=== PATIENT | female | born 1950 | race Caucasian/White ===

== ENCOUNTER 2022-04-05 06:44 | Outpatient (REF) | payer MEDICARE, MEDICAID, SELFPAY ==
--- NOTE | ~2022-04-05 | XR_ITS ---
EXAMINATION: XR ELBOW, RIGHT CLINICAL INFORMATION: Pain in the elbow. COMPARISON: None TECHNIQUE: AP, lateral, and oblique views of the right elbow. FINDINGS: Significant soft tissue increase over the olecranon. Some small bony densities are seen in the region. This could represent bursitis with adjacent dystrophic calcification in the triceps. With these small bony densities underlying bony infection cannot be excluded and therefore correlation needs to be made clinically. There is otherwise degeneration at the articulation of the ulna with the distal humerus and degenerative change along the medial collateral complex and there is also degeneration along the lateral collateral complex. XR/XR elbow RT min 3V IMPRESSION: Soft tissue increase adjacent to the olecranon as described and bony densities in the region. This could be bursitis with adjacent calcific tendinosis of the triceps tendon versus calcific bursitis.. Underlying infection including bony infection cannot be excluded. Correlation recommended clinically. If further evaluation is warranted consider MRI. There is no acute fracture or dislocation.
== END 2022-04-05 06:45 | disposition home or self-care (01) ==
LOC: HO.HOSX 06:44
PROVIDERS: Visit Provider Physician Assistant
DX: M70.21 Olecranon bursitis, right elbow (principal); M24.029 Loose body in unspecified elbow
CPT/HCPCS: 73080; 99202

== ENCOUNTER 2022-04-19 12:45 | Outpatient (REF) | payer MEDICARE, MEDICAID, SELFPAY ==
--- NOTE | ~2022-04-19 | MR_ITS ---
EXAMINATION: MRI OF THE RIGHT ELBOW WITHOUT CONTRAST CLINICAL INFORMATION: Patient reports right elbow lump previously drained but fluid returned. COMPARISON: X-rays of the right elbow March 2022 TECHNIQUE: MRI of the right elbow performed without contrast. FINDINGS: Bursa: There is increased fluid and synovitis within the olecranon bursa. There also appears to be at least one and likely several calcified or ossified fragments within the area of fluid. There is mild edema in the surrounding soft tissues. Muscles Common extensor tendon: There is an increased signal within the proximal tendon extending from the humeral attachment extending distally over approximately 1 cm. This is the appearance of tendinosis and intrasubstance partial tearing. The more distal muscles are normal. Common flexor tendon: There is a small focus of increased signal at the humeral attachment compatible with tendinosis and intrasubstance partial tearing. Remaining muscles are normal. Ligaments: Intact. Bone and articular cartilage: Normal. MR/MR elbow RT wo con IMPRESSION: There is an olecranon bursitis with possible scattered areas of calcification or ossification along with synovitis. Etiology uncertain. Differential diagnosis includes inflammatory arthropathy, gout arthropathy and CPPD arthropathy and synovial osteochondromatosis.
== END 2022-04-19 12:46 | disposition home or self-care (01) ==
LOC: HO.MRI 12:45
PROVIDERS: PCP Nurse Practitioner Family; Visit Provider Physician Assistant
DX: M70.21 Olecranon bursitis, right elbow (principal); M24.029 Loose body in unspecified elbow
CPT/HCPCS: 73221